=== PATIENT | male | born 1980 | race Caucasian/White ===

== ENCOUNTER 2017-05-08 02:06 | Emergency (ER) | payer SELFPAY ==
[2017-05-08 02:12] VITALS: BP 154/100; PULSE 91; O2SAT 98
[2017-05-08 03:27] LABS: Amphetamine,Urine NEG. (NEGATIVE); Barbiturate,Urine NEG. (NEGATIVE); Benzodiazepine,Urine NEG. (NEGATIVE); Cocaine,Urine NEG. (NEGATIVE); Methadone,Urine NEG. (NEGATIVE); Opiate,Urine NEG. (NEGATIVE); PCP,Urine NEG. (NEGATIVE); THC,Urine NEG. (NEGATIVE)
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
== END 2017-05-08 03:55 | disposition home or self-care (01) ==
LOC: ED 02:06
DX: F10.920 Alcohol use, unspecified with intoxication, uncomplicated (principal)
CPT/HCPCS: 36415; 80307; 99283; G0481

== ENCOUNTER 2019-11-04 20:30 | Emergency (ER) | payer SELFPAY ==
--- NOTE | 2019-11-04 20:52 | ERPHSYRPT ---
- History of Present Illness Time Seen by Provider: 11/04/19 20:52 Source: patient, family Exam Limitations: no limitations Patient Subjective Stated Complaint: pt c/o both eyes watering since last Thursday Triage Nursing Assessment: pt c/o both eyes watering and bloodshot since 10/28/19. Initially was just left eye but Thursday11/02/19, the right eye started. Pt has poor vision anyway. Pt does not wear contacts. Physician History: This is a 39-year-old white male with bilateral conjunctivitis. The eyes are burning and watery. The are itchy as well. Patient's had the same symptoms a little more than a week ago. The patient symptoms began approximately 1 week ago. Patient has not sought medical care until today. 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 Patient's spouse symptoms resolved with antibiotics and steroids. Patient has not had fever. Timing/Duration: day(s) (Symptoms present for 7 days) Location: bilateral eyes Severity: moderate Apparent Injury: no Associated Symptoms: burning, itching, sensitivity to light, redness Visual Assistive Devices: None Chemical Exposure: No Trauma: No Welding Arc/Tanning Bed Exposure: No Allergies/Adverse Reactions: No Known Drug Allergies Allergy (Verified 11/04/19 20:45) Hx Tetanus, Diphtheria Vaccination/Date Given: No Hx Influenza Vaccination/Date Given: No Hx Pneumococcal Vaccination/Date Given: No Immunizations Up to Date: No Travel Risk - International Travel Have you traveled outside of the country in past 3 weeks: No - Coronavirus Screening Are you exhibiting any of the following symptoms?: No Close contact with a COVID-19 positive Pt in past 14-21 Days: No - Review of Systems Constitutional: No Symptoms Eyes: Eye Pain (Bilateral burning), Eye Redness, Itchy Ears, Nose, & Throat: No Symptoms Respiratory: No Symptoms Cardiac: No Symptoms Abdominal/Gastrointestinal: No Symptoms Genitourinary Symptoms: No Symptoms Musculoskeletal: No Symptoms Skin: No Symptoms Neurological: No Symptoms Psychological: No Symptoms Endocrine: No Symptoms Hematologic/Lymphatic: No Symptoms Immunological/Allergic: No Symptoms All Other Systems: Reviewed and Negative - Past Medical History Pertinent Past Medical History: No Neurological History: No Pertinent History ENT History: No Pertinent History Cardiac History: No Pertinent History Respiratory History: No Pertinent History Endocrine Medical History: No Pertinent History Musculoskeletal History: No Pertinent History GI Medical History: No Pertinent History History: No Pertinent History Psycho-Social History: No Pertinent History Male Reproductive Disorders: No Pertinent History - Past Surgical History Past Surgical History: Yes Neuro Surgical History: No Pertinent History Cardiac: No Pertinent History Respiratory: No Pertinent History Gastrointestinal: No Pertinent History Genitourinary: No Pertinent History Musculoskeletal: Other Male Surgical History: No Pertinent History Other Surgical History: arrow removed from lt wrist - Social History Smoking Status: Current every day smoker How long have you smoked: 20 yrs Exposure to second hand smoke: Yes Drug Use: none Patient Lives Alone: Yes - Nursing Vital Signs Nursing Vital Signs: Initial Vital Signs Temperature 97.5 F 11/04/19 20:36 Pulse Rate 94 H 11/04/19 20:36 Respiratory Rate 22 11/04/19 20:36 Blood Pressure 185/124 11/04/19 20:36 O2 Sat by Pulse Oximetry 98 11/04/19 20:36 Pain Scale Pain Intensity 0 - Physical Exam General Appearance: no apparent distress, alert, anxiety Vision Acuity Degree Evaluation Phase: Uncorrected Vision Acuity Right Eye: 20/70 Vision Acuity Left Eye: 20/70 Eye Exam: bilateral eye: conjunctival inflammation Ears, Nose, Throat Exam: normal ENT inspection, moist mucous membranes Neck Exam: normal inspection, non-tender, supple, full range of motion (Time is the Tylenol) Respiratory Exam: normal breath sounds, lungs clear, airway intact, No chest tenderness, No respiratory distress Gastrointestinal Exam: No tenderness Extremity Exam: normal inspection, normal range of motion, pelvis stable Neurologic: alert, oriented x 3, cooperative, 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 Patient was told to use Tylenol as needed for pain. Counseled pt/family regarding: diagnosis, need for follow-up - Departure Departure Disposition: Home Clinical Impression: Bilateral conjunctivitis Condition: Stable Critical Care Time: No Referrals: BENI LOJA MD [Primary Care Provider] - Additional Instructions: Use lubricating eye drops or ointment as directed on [id number] products. Fill your prescriptions at the pharmacy and take as directed. Return to the emergency department for follow-up in 24 hours. Return sooner if symptoms are worsening Prescriptions: Prednisone 10 mg [Deltasone 10 mg] 10 mg PO TID #12 tablet Cephalexin Mh 500 mg [Keflex 500 mg] 500 mg PO TID #21 capsule
[2019-11-04] MEDS ORDERED: Rocephin 1000 MG INJ IM ONE (21:08)
[2019-11-04] MEDS ORDERED: solu-MEDROL 125 MG IM ONE (21:08)
[2019-11-04] MEDS ORDERED: XYLOCAINE 1% HCL 20 ML MDV ONE (21:31)
[2019-11-04] MEDS ORDERED: solu-MEDROL 125 MG ONE (21:31)
[2019-11-04] MEDS ORDERED: Rocephin 1000 MG INJ ONE (21:31)
[2019-11-04 21:41] VITALS: BP 161/117; PULSE 88; O2SAT 97
== END 2019-11-04 21:48 | disposition home or self-care (01) ==
LOC: ED 20:30
DX: H10.33 Unspecified acute conjunctivitis, bilateral (principal); H57.89 Other specified disorders of eye and adnexa; Z72.0 Tobacco use
CPT/HCPCS: 96372; 99284; J0696; J2930